=== PATIENT | female | born 1980 | race American Indian/Alaskan Native ===

== ENCOUNTER 2021-01-29 09:00 | Emergency (ER) | payer MEDICARE ==
--- NOTE | 2021-01-29 09:19 | Emergency Department Report ---
ED General Adult HPI - General Stated complaint: CHF EXAC Time Seen by Provider: 01/29/21 09:03 - History of Present Illness Initial comments: Chief complaint: "I am having a flare." HPI: This is a 40-year-old female with history of Multiple myeloma, congestive heart failure, chronic kidney disease, fibromyalgia, neuropathy, SVT status post ablation who presents with generalized body pain. She takes Dilaudid in Lyrica to manage chronic pain due to fibromyalgia and neuropathy. She has missed several doses of torsemide. She feels this may be the reason that she is having a flare. She has mild shortness of breath. She lives in [facility]. She plans to move to the [facility]. She denies fever, headache, chest pain, leg pain. She denies any swelling. Medications: Torsemide Spironolactone Potassium Iron Metoprolol -: Gradual, days(s) (Several days) Location: left, right, upper extremity, lower extremity Severity scale (0 -10): 10 Quality: burning, aching Consistency: constant Improves with: none Worsens with: none Associated Symptoms: other (typical pain fibromyalgia flare) - Related Data Previous Rx's Medication Instructions Recorded Last Taken Type Bumetanide 2 mg PO DAILY #14 tablet 01/29/21 Unknown Rx Allergies Allergy/AdvReac Type Severity Reaction Status Date / Time aspirin Allergy Anaphylaxis Verified 01/29/21 10:16 ibuprofen [From Motrin] Allergy Anaphylaxis Verified 01/29/21 10:16 Penicillins Allergy Anaphylaxis Verified 01/29/21 10:16 Sulfa (Sulfonamide Allergy Anaphylaxis Verified 01/29/21 10:16 Antibiotics) vitamin K2 Allergy Anaphylaxis Verified 01/29/21 10:16 ED Review of Systems ROS: Stated complaint: CHF EXAC Other details as noted in HPI Comment: All other systems reviewed and negative Constitutional: denies: fever, malaise Respiratory: denies: cough, shortness of breath Cardiovascular: denies: chest pain Gastrointestinal: denies: abdominal pain, nausea, vomiting ED Past Medical Hx - Past Medical History Previous Medical History?: Yes Hx Congestive Heart Failure: Yes Hx Renal Disease: Yes (CKD stage III) Additional medical history: Neuropathy, fibromyalgia - Surgical History Past Surgical History?: Yes Hx Cholecystectomy: Yes Additional Surgical History: Eye surgeries, hernia surgeries, cholecystectomy, , cardiac ablation - Family History Family history: hypertension - Social History Smoking Status: Never Smoker Substance Use Type: None - Medications Home Medications: Home Medications Medication Instructions Recorded Confirmed Last Taken Type Bumetanide 2 mg PO DAILY #14 tablet 01/29/21 Unknown Rx ED Physical Exam - General Limitations: No Limitations General appearance: alert, in no apparent distress - Head Head exam: Present: atraumatic, normocephalic - Eye Eye exam: Present: other (Exotropia). Absent: scleral icterus, conjunctival injection - ENT ENT exam: Present: mucous membranes moist - Neck Neck exam: Present: normal inspection - Respiratory Respiratory exam: Present: normal lung sounds bilaterally. Absent: respiratory distress - Cardiovascular Cardiovascular Exam: Present: regular rate, normal rhythm. Absent: systolic murmur, diastolic murmur, rubs, gallop - GI/Abdominal GI/Abdominal exam: Present: soft. Absent: distended, tenderness, guarding, rebound - Extremities Exam Extremities exam: Present: normal inspection. Absent: pedal edema - Neurological Exam Neurological exam: Present: alert, oriented X3 - Psychiatric Psychiatric exam: Present: normal affect, normal mood - Skin Skin exam: Present: warm, dry, intact, normal color. Absent: rash ED Course Vital Signs 01/29/21 01/29/21 01/29/21 09:25 09:30 09:35 Temperature 97.9 F Pulse Rate 80 78 Respiratory 18 24 Rate Blood Pressure 140/92 O2 Sat by Pulse 100 100 Oximetry ED Medical Decision Making - Lab Data Result diagrams: 01/29/21 09:10 01/29/21 09:10 - Radiology Data Radiology results: report reviewed [facility] [address] [place] [address] XRay Report Signed Patient: AMELIA YANG MR#: [id number] [birth year] : 1980 Acct:[id number] Age/Sex: 40 / F ADM Date: 01/29/21 Loc: ED Attending Dr: Ordering Physician: Yanelis Roldan MD Date of Service: 01/29/21 Procedure(s): XR chest 1V ap Accession Number(s): [id number] cc: Yanelis Roldan MD Fluoro Time In Minutes: CHEST 1 VIEW INDICATION: dyspnea. COMPARISON: Left [place] terminates near the cavoatrial junction. FINDINGS: Support devices: Cardiac loop recorder device overlies the heart shadow. Heart: Mild cardiomegaly. Lungs/Pleura: The lungs are clear with no evidence for infiltrate, pleural fluid or pneumothorax. Mild cephalization of blood flow is noted. Additional findings: None. IMPRESSION: Cardiomegaly. Lungs clear. Signer Name: Man Nash Jr, MD Signed: 01/29/2021 10:18 AM Workstation Name: [id number] Transcribed By: TTR Dictated By: MAN NASH JR, MD Electronically Authenticated By: MAN NASH JR, MD Signed Date/Time: 01/29/21 1018 DD/ TD/TT: - Medical Decision Making 1. History of CHF, elevated BNP: No pulmonary edema, no notable signs of hypervolemia clinically. She does not have edema of her lower extremities. Patient wanted to be admitted based on elevated BNP. I attempted to explain isolated elevated BNP did not warrant hospital admission. 2. Fibromyalgia flare: This was patient's main concern upon arrival. Potassium is 5.3 I suspect hemolyzed sample with normal kidney function. Patient received 2 doses of IV hydromorphone which I understand would not equate to patient's home regimen. I recommended that she continue her home medication of Dilaudid and Lyrica. I have prescribed Bumex. Patient is discharged home. She desires hospital admission. However she does not have acute need for inpatient stabilization or treatment. Critical care attestation.: If time is entered above; I have spent that time in minutes in the direct care of this critically ill patient, excluding procedure time. ED Disposition Clinical Impression: Fibromyalgia, Congestive heart failure, Chronic kidney disease Disposition: DC-01 TO HOME OR SELFCARE Is pt being admited?: No Does the pt Need Aspirin: No Condition: Stable Prescriptions: Bumetanide 2 mg PO DAILY #14 tablet Referrals: AMANDEEP DAVIS MD [Staff Physician] - 3-5 Days KATHY AMARO MD [Staff Physician] - 3-5 Days
--- NOTE | 2021-01-29 10:23 | XRay Report ---
CHEST 1 VIEW INDICATION: dyspnea. COMPARISON: Left [place]ad-l-Mug[place] terminates near the cavoatrial junction. FINDINGS: Support devices: Cardiac loop recorder device overlies the heart shadow. Heart: Mild cardiomegaly. Lungs/Pleura: The lungs are clear with no evidence for infiltrate, pleural fluid or pneumothorax. Mil d cephalization of blood flow is noted. Additional findings: None. IMPRESSION: Cardiomegaly. Lungs clear. Signer Name: Man Nash Jr, MD Signed: 01/29/2021 10:18 AM Workstation Name: [id number]
[2021-01-29] MEDS ORDERED: ONDANSETRON 4 MG/2 ML INJ IV ONE (11:00)
[2021-01-29] MEDS ORDERED: HYDROmorphone 1 MG/1 ML INJ IV ONE ×2 (11:00→12:32)
[2021-01-29 11:24] LABS: Basophils % (Auto) 0.7 % (0.0-1.8); Eosinophils % (Auto) 0.5 % (0.0-4.3); Hemoglobin 12.5 gm/dl (10.1-14.3); Lymphocytes # (Auto) 0.5 K/mm3 (1.2-5.4); Lymphocytes % (Auto) 13.9 % (13.4-35.0); Mean Corpuscular HGB Conc 34 % (30-34); Mean Corpuscular Volume 101 fl (79-97); Monocytes # (Auto) 0.4 K/mm3 (0.0-0.8); Monocytes % (Auto) 11.5 % (0.0-7.3); Platelet Count 175 K/mm3 (140-440); Red Blood Count 3.66 M/mm3 (3.65-5.03); Red Cell Distribution Width 16.6 % (13.2-15.2)
[2021-01-29 11:40] LABS: Blood Urea Nitrogen 9 mg/dL (7-17); Calcium 9.3 mg/dL (8.4-10.2); Hemolysis Index 208
[2021-01-29 11:42] LABS: BUN/Creatinine Ratio 15
[2021-01-29] MEDS ORDERED: METOCLOPRAMIDE 10 MG/2 ML INJ IV ONE (12:32)
[2021-01-29 13:49] VITALS: BP 129/93
== END 2021-01-29 13:54 | disposition home or self-care (01) ==
LOC: ED 09:00
DX: M79.18 Myalgia, other site (principal); N18.30 Chronic kidney disease, stage 3 unspecified; I50.9 Heart failure, unspecified
CPT/HCPCS: 36415; 71045; 80048; 83880; 85025; 96374; 96375; 96376; 99284; J1170; J1642; J2405; J2765